=== PATIENT | female | born 1950 | race Caucasian/White ===

== ENCOUNTER 2022-12-22 12:35 | Outpatient (CLI) | payer MEDICARE, BC ==
[2022-12-22] VITALS (20 sets, daily range): BP systolic 44–154; BP diastolic 25–110; PULSE 79–106
== END 2022-12-22 23:59 | disposition home or self-care (01) ==
LOC: CARD DIAG 12:35
PROVIDERS: ATTEND Internal Medicine Cardiovascular Disease
DX: R42 Dizziness and giddiness (principal)
CPT/HCPCS: 93660